=== PATIENT | female | born 1990 | race Caucasian/White ===

== ENCOUNTER 2023-11-14 09:40 | Emergency (ER) | payer OTHER ==
[~2023-11-14] VITALS: Ht 157.5 cm; Wt 59.4 kg
[2023-11-14 09:52] VITALS: BP 123/85; PULSE 114; RESP 18; TEMP 97.8; O2SAT 98
[2023-11-14] MEDS ORDERED: diphenhydrAMINE 50 MG CAP PO ONE (10:07)
[2023-11-14 10:09] VITALS: BP 123/85; PULSE 114; RESP 18; TEMP 97.8; O2SAT 98
[2023-11-14] MEDS: diphenhydrAMINE 50 MG CAP PO ONE (10:10)
[2023-11-14] MEDS ORDERED: PRED20TA5 PO (10:14)
[2023-11-14] MEDS ORDERED: DIPH25TA53 PO (10:14)
== END 2023-11-14 10:20 | disposition home or self-care (01) ==
LOC: MED 09:40
DX: T78.40XA Allergy, unspecified, initial encounter (principal); R03.0 Elevated blood-pressure reading, without diagnosis of hypertension; F12.90 Cannabis use, unspecified, uncomplicated; Z88.0 Allergy status to penicillin; X58.XXXA Exposure to other specified factors, initial encounter
CPT/HCPCS: 99283; Q0163